=== PATIENT | male | born 1980 | race Caucasian/White ===

== ENCOUNTER 2020-07-04 04:49 | Emergency (ER) | payer OTHER ==
[2020-07-04] MEDS ORDERED: Prochlorperazine 10 MG/2 ML SDV IVPUSH ONE (05:03)
[2020-07-04] MEDS ORDERED: Sodium Chloride 0.9% 10 ML Syringe FLUSH PRN (05:03)
--- NOTE | 2020-07-04 05:06 | EDM.PDOC ---
ED HPI GENERAL MEDICAL PROBLEM - General Stated Complaint: NAUSEA; DIZZY Time Seen by Provider: 07/04/20 05:04 Source of Information: Reports: Patient History Limitations: Reports: No Limitations - History of Present Illness INITIAL COMMENTS - FREE TEXT/NARRATIVE: 40 yo male with sudden onset Compazine since 4 am this morning.Turned over in bed and felt spinning sensation,nausea and dry heaving. No headache. - Related Data Allergies Allergy/AdvReac Type Severity Reaction Status Date / Time No Known Allergies Allergy Verified 07/04/20 06:42 Home Meds: Home Meds NK [No Known Home Meds] 07/04/20 [History] ED ROS GENERAL - Review of Systems Review Of Systems: Comprehensive ROS is negative, except as noted in HPI. ED EXAM, DIZZINESS - Physical Exam Exam: See Below Exam Limited By: No Limitations General Appearance: Alert, WD/WN Respiratory/Chest: No Respiratory Distress, Lungs Clear Cardiovascular: Normal Peripheral Pulses, Regular Rate, Rhythm Neurological: Alert Psychiatric: Normal Affect #1 Interpretation Rhythm: NSR [place]: Normal Course - Vital Signs Last Recorded V/S: Last Vital Signs Temp 97.3 F 07/04/20 04:50 Pulse 68 07/04/20 05:30 Resp 18 07/04/20 05:30 BP 123/82 07/04/20 05:30 Pulse Ox 99 07/04/20 05:30 - Orders/Labs/Meds Orders: Active Orders 24 hr Category Date Time Status Peripheral IV Insertion Adult [OM.PC] Routine Oth 07/04/20 05:03 Ordered EKG 12 Lead [EK] Routine Ther 07/04/20 05:03 Ordered Labs: Laboratory Tests 07/04/20 07/04/20 07/04/20 Range/Units 05:25 05:25 05:25 WBC 5.3 (3.2-10.1) x10-3/uL RBC 5.04 (3.90-5.90) x10(6)uL Hgb 14.8 (12.9-17.7) g/dL Hct 44.9 (38.3-50.1) % MCV 89.1 (80.8-98.7) fL MCH 29.3 (27.0-33.3) pg MCHC 32.8 (28.7-35.3) g/dL RDW 13.2 (12.4-15.0) % Plt Count 232 (117-477) x10(3)uL MPV 8.2 (6.7-11.0) fL Neut % (Auto) 51.7 (40.3-71.8) % Lymph % (Auto) 35.6 (15.8-45.3) % Russell % (Auto) 10.8 (5.5-15.2) % Eos % (Auto) 1.2 (0.1-6.8) % Baso % (Auto) 0.7 (0.3-3.8) % Neut # (Auto) 2.7 (1.7-6.9) x10-3/uL Lymph # (Auto) 1.9 (0.5-4.5) x10-3/uL Russell # (Auto) 0.6 (0.0-1.2) x10-3/uL Eos # (Auto) 0.1 (0.0-0.6) x10-3/uL Baso # (Auto) 0.0 (0.0-0.3) x10-3/uL Sodium 142 (135-145) mmol/L Potassium 4.1 (3.5-5.3) mmol/L Chloride 105 (100-110) mmol/L Carbon Dioxide 26 (21-32) mmol/L BUN 19 H (7-18) mg/dL Creatinine 1.2 (0.70-1.30) mg/dL Est Cr Clr Drug Dosing 92.48 mL/min Estimated GFR (MDRD) > 60 (>60) BUN/Creatinine Ratio 15.8 (9-20) Glucose 120 H (80-116) mg/dL Calcium 8.9 (8.6-10.2) mg/dL Troponin I 4.9 (4.0-60.3) pg/mL SARS-CoV-2 RNA (DERRICK) (NEGATIVE) 07/04/20 Range/Units 05:30 WBC (3.2-10.1) x10-3/uL RBC (3.90-5.90) x10(6)uL Hgb (12.9-17.7) g/dL Hct (38.3-50.1) % MCV (80.8-98.7) fL MCH (27.0-33.3) pg MCHC (28.7-35.3) g/dL RDW (12.4-15.0) % Plt Count (117-477) x10(3)uL MPV (6.7-11.0) fL Neut % (Auto) (40.3-71.8) % Lymph % (Auto) (15.8-45.3) % Russell % (Auto) (5.5-15.2) % Eos % (Auto) (0.1-6.8) % Baso % (Auto) (0.3-3.8) % Neut # (Auto) (1.7-6.9) x10-3/uL Lymph # (Auto) (0.5-4.5) x10-3/uL Russell # (Auto) (0.0-1.2) x10-3/uL Eos # (Auto) (0.0-0.6) x10-3/uL Baso # (Auto) (0.0-0.3) x10-3/uL Sodium (135-145) mmol/L Potassium (3.5-5.3) mmol/L Chloride (100-110) mmol/L Carbon Dioxide (21-32) mmol/L BUN (7-18) mg/dL Creatinine (0.70-1.30) mg/dL Est Cr Clr Drug Dosing mL/min Estimated GFR (MDRD) (>60) BUN/Creatinine Ratio (9-20) Glucose (80-116) mg/dL Calcium (8.6-10.2) mg/dL Troponin I (4.0-60.3) pg/mL SARS-CoV-2 RNA (DERRICK) Negative (NEGATIVE) Meds: Medications Discontinued Medications Generic Name Dose Route Start Last Admin Trade Name Freq PRN Reason Stop Dose Admin Prochlorperazine Edisylate 10 mg 07/04/20 05:03 07/04/20 05:15 Prochlorperazine 10 Mg/2 Ml Sdv IVPUSH 07/04/20 05:04 10 mg ONETIME ONE Administration Sodium Chloride 10 ml 07/04/20 05:03 07/04/20 05:10 Sodium Chloride 0.9% 10 Ml Syringe FLUSH 10 ml ASDIRECTED PRN Administration Keep Vein Open Departure - Departure Time of Disposition: 08:37 Disposition: Home, Self-Care 01 Condition: Good Clinical Impression: BPPV (benign paroxysmal positional vertigo) - Discharge Information Instructions: Benign Positional Vertigo Referrals: PCP,None [Primary Care Provider] - Forms: ED Department Discharge Care Plan Goals: FOLLOW UP REGULAR NEEDED MECLIZINE - IS A NON RX MEDICATION FOR NAUSEA AND VERTIGO Sepsis Event Note (ED) - Focused Exam Vital Signs: Vital Signs Temp Pulse Resp BP Pulse Ox 07/04/20 05:30 68 18 123/82 99 07/04/20 04:50 97.3 F 74 16 131/85 99 - Problem List & Annotations (1) BPPV (benign paroxysmal positional vertigo) SNOMED Code(s): 919675798 Code(s): H81.10 - BENIGN PAROXYSMAL VERTIGO, UNSPECIFIED EAR Status: Acute Qualifiers: Laterality: unspecified laterality Qualified Code(s): H81.10 - Benign paroxysmal vertigo, unspecified ear - Problem List Review Problem List Initiated/Reviewed/Updated: Yes - My Orders Last 24 Hours: My Active Orders 07/04/20 05:03 Peripheral IV Insertion Adult [OM.PC] Routine EKG 12 Lead [EK] Routine - Assessment/Plan Last 24 Hours: My Active Orders 07/04/20 05:03 Peripheral IV Insertion Adult [OM.PC] Routine EKG 12 Lead [EK] Routine Plan: I gave him Compazine 10 mg IV.Symptoms improved.DC home on OTC Meclizine
== END 2020-07-04 06:50 | disposition home or self-care (01) ==
LOC: FB.ED 04:49
DX: H81.10 Benign paroxysmal vertigo, unspecified ear (principal); Z20.822 Contact with and (suspected) exposure to COVID-19
CPT/HCPCS: 36415; 80048; 84484; 85025; 87635; 93005; 96374; 99284; J0780; 93010; 99283; U0002